=== PATIENT | male | born 1965 | race African-American/Black ===

== ENCOUNTER 2017-08-31 03:38 | Emergency (ER) | payer OTHER ==
[~2017-08-31] VITALS: Ht 193 cm; Wt 136.0 kg
[2017-08-31] MEDS ORDERED: PREDNISONE 20MG TABLET PO ONE (04:15)
[2017-08-31] MEDS ORDERED: DIAZEPAM 2 MG TABLET PO ONE (04:15)
[2017-08-31] MEDS ORDERED: KETOROLAC 60MG/2ML VIAL IM ONE (04:15)
[2017-08-31 05:17] VITALS: BP 154/94
== END 2017-08-31 05:52 | disposition home or self-care (01) ==
LOC: ER 03:38
DX: M79.2 Neuralgia and neuritis, unspecified (principal); G89.29 Other chronic pain; M54.5 Low back pain; I10 Essential (primary) hypertension
CPT/HCPCS: 96372; 99283; J1885; J7512

== ENCOUNTER 2017-09-04 09:04 | Emergency (ER) | payer OTHER ==
[~2017-09-04] VITALS: Ht 177.8 cm; Wt 110.0 kg
[2017-09-04] MEDS ORDERED: KTAB (09:18)
[2017-09-04] MEDS ORDERED: METO25TA6 PO (09:18)
[2017-09-04] MEDS ORDERED: FURO20TA4 PO (09:18)
[2017-09-04] MEDS ORDERED: AMLO1POW MC (09:18)
[2017-09-04] MEDS ORDERED: METO100T16 PO (10:11)
[2017-09-04] MEDS ORDERED: FURO40TA5 PO (10:14)
[2017-09-04] MEDS ORDERED: AMLO10TA80 PO (10:15)
[2017-09-04] MEDS ORDERED: POTA10CA42 PO (10:16)
[2017-09-04] MEDS ORDERED: OXYCODONE HCL 5MG TABLET PO ONE (12:15)
[2017-09-04] MEDS ORDERED: PREDNISONE 20MG TABLET PO ONE (12:15)
[2017-09-04] MEDS ORDERED: OXYCODONE HCL 5MG TABLET PO SCH (12:35)
[2017-09-04 13:04] VITALS: BP 184/111
== END 2017-09-04 13:16 | disposition home or self-care (01) ==
LOC: ER 09:04
DX: M54.32 Sciatica, left side (principal); I10 Essential (primary) hypertension
CPT/HCPCS: 99283; J7512; Z7610